=== PATIENT | female | born 1970 | race Caucasian/White ===

== ENCOUNTER → 2017-12-09 | Outpatient (CLI) | payer OTHER ==
[~2017-12-09] MED LIST: AMOXICILLIN 50500 M1 PO; AMOXICILLIN875 MG PO; ASPIRIN EC81 M1 PO; ATENOLOL 25 MG25 M1 PG; DOXYCYCLINE 10100 MG PO; HYDROCODONE-AP1 EAC6 PO; IBUPROFEN 600600 M1 PO; IBUPROFEN 800800 MG PO; LACTINEX CHEWA1 EACH PO; LEVAQUIN 500 M500 M2 PO; LEVOTHYROXIN0.112 M1 PO; LOPERAMIDE 2 MG2 M1 PO; MULTIVITAMINS1 EAC7; NORCO 5-325 TA1 EACH PO; PENICILLIN VK500 MG PO; PROVENTIL HFA6.7 G1 INH; QUINAGLUTE DUR324 M1 PO; ZOFRAN ODT4 MG PO; ZPAK PO
== END ==
LOC: RAD 12-08 09:07
DX: M25.512 Pain in left shoulder (principal); M54.5 Low back pain; M25.562 Pain in left knee

== ENCOUNTER → 2018-07-03 | Outpatient (CLI) | payer OTHER | LOC: RAD 06-30 15:36 | DX: Z12.31 Encounter for screening mammogram for malignant neoplasm of breast (principal) ==

== ENCOUNTER 2018-08-21 16:33 | Emergency (ER) | payer OTHER ==
[~2018-08-21] VITALS: Ht 157.5 cm; Wt 55.3 kg
== END 2018-08-21 19:04 | disposition home or self-care (01) ==
LOC: ER 16:33
DX: S61.212A Laceration without foreign body of right middle finger without damage to nail, initial encounter (principal); Z23 Encounter for immunization; W26.8XXA Contact with other sharp object(s), not elsewhere classified, initial encounter; Y92.89 Other specified places as the place of occurrence of the external cause; Y93.89 Activity, other specified; Y99.8 Other external cause status